=== PATIENT | female | born 1950 | race Caucasian/White ===

== ENCOUNTER 2022-04-05 00:55 | Day surgery (SDC) | payer MEDICARE, SELFPAY ==
[2022-03-22 10:34] VITALS: BMI 23.9
[2022-04-05 09:37] VITALS: BP 129/71; PULSE 72; RESP 15; TEMP 37.2; O2SAT 100
[2022-04-05] MEDS: LACTATED RINGERS 1,000 ML 150 ML IV CONT (09:47)
--- NOTE | 2022-04-05 10:12 | P.PNAN_ITS ---
Anes - Initial Pre Proc Eval Procedure: Operation Date: 04/05/22 10:30 Proposed Procedures p Screening Colonoscopy - Aleks Calvillo MD Date/Time: 04/05/22 10:12 Surgeon: Aleks Calvillo MD Pre Op Diagnosis: neoplasm screening Patient Data Age: 71 Gender: F Height: 1.63 m Weight: 62.3 kg Last Vital Signs Temp 99.0 F 04/05/22 09:37 Pulse 72 04/05/22 09:37 Resp 15 04/05/22 09:37 BP 129/71 04/05/22 09:37 Pulse Ox 100 04/05/22 09:37 O2 Del Method Room Air 04/05/22 09:37 Allergies Allergy/AdvReac Type Severity Reaction Status Date / Time codeine AdvReac Intermediate Upset Verified 04/05/22 09:36 stomach Home Medications Medication Instructions Recorded Confirmed Type blood pressure monitor #1 ea 04/06/20 04/05/22 Rx triamterene 37.5 0.5 tablet PO QAM #90 tabs 08/17/20 04/05/22 Rx mg-hydrochlorothiazide 25 mg tablet losartan 50 mg tablet 50 mg PO DAILY 03/22/22 04/05/22 History simvastatin 10 mg tablet 10 mg PO DAILY 03/22/22 04/05/22 History Patient hx anesthesia problems: post op nausea/vomiting Family hx anesthesia problems: none Results Review: All pre-operative results and documents have been reviewed as part of the pre- operative evaluation. [facility] Past Medical History Medical History (Updated 04/06/20 @ 14:11 by Lisa Concepcion NP) Essential (primary) hypertension Mixed hyperlipidemia Normal colonoscopy (~08/2017) Osteopenia of femoral neck Left - Dexa 08/2017 Recurrent UTI Surgical History Surgical History History of lumpectomy (~2004) Family History Family History Father Carcinoma of colon Patient's father is , Onset Age: 65 Mother Family history of lung cancer Social History Social History Smoking status: Never smoker Alcohol intake: current Alcohol use details: 2 per month Substance use: never Substance use type: does not use Living arrangements: with family Spiritual care concerns: No Anes - Eval Final PreProcedure Day of Procedure 04/05/22 10:12 Patient weight: normal Heart: regular rate and rhythm Lungs: clear to auscultation Airway: Mallampati scale class II Neurological: alert and oriented Last oral intake: >/= 8 hours ASA classification: III Emergent: no Anesthetic plan: proceed Anesthesia type and monitoring: general GIVS and standard monitoring Results Review: All pre-operative results and documents have been reviewed as part of the pre- operative evaluation. Informed Consent: The patient's anesthetic plan and its attendant risks and benefits were discussed with the patient/family/POA. Questions were solicited and answers provided to the satisfaction of the patient/family/POA.
--- NOTE | 2022-04-05 10:13 | PM.HPGS ---
History of Present Illness History of Present Illness Consent: Risks, benefits, and alternatives have been discussed and questions answered. Patient agrees to proceed with procedure. Chief complaint: neoplasm screening Narrative: Madonna Acosta is a 71 year old female He was referred for colon cancer screening. Her father had colon cancer. Review of Systems Review of Systems: All systems reviewed & are unremarkable except as noted in HPI and below PMFSH Past Medical History Medical History (Updated 04/05/22 @ 10:13 by Aleks Calvillo MD) Essential (primary) hypertension Mixed hyperlipidemia Normal colonoscopy (~08/2017) Osteopenia of femoral neck Left - Dexa 08/2017 Recurrent UTI Surgical History Surgical History History of lumpectomy (~2004) Family History Family History Father Carcinoma of colon Patient's father is , Onset Age: 65 Mother Family history of lung cancer Social History Social History Smoking status: Never smoker Alcohol intake: current Alcohol use details: 2 per month Substance use: never Substance use type: does not use Living arrangements: with family Spiritual care concerns: No Meds Home Medications and Allergies Home Medications Medication Instructions Recorded Confirmed Type blood pressure monitor #1 ea 04/06/20 04/05/22 Rx triamterene 37.5 0.5 tablet PO QAM #90 tabs 08/17/20 04/05/22 Rx mg-hydrochlorothiazide 25 mg tablet losartan 50 mg tablet 50 mg PO DAILY 03/22/22 04/05/22 History simvastatin 10 mg tablet 10 mg PO DAILY 03/22/22 04/05/22 History Allergies Allergy/AdvReac Type Severity Reaction Status Date / Time codeine AdvReac Intermediate Upset Verified 04/05/22 09:36 stomach Vital Signs Vital Signs - 24 hr 04/05/22 09:37 Temperature 37.2 C Pulse Rate 72 Respiratory Rate 15 Blood Pressure 129/71 Pulse Oximetry 100 Oxygen Delivery Room Air Exam Resp: Auscultation: clear to auscultation bilaterally Cardio: Rate: regular rate Rhythm: regular rhythm GI: GI Palp: Yes Soft to palpation and No Tenderness to palpation present (GI) Assessment and Plan Assessment and plan (1) Colon cancer screening: Code(s): Z12.11 - Encounter for screening for malignant neoplasm of colon Status: Acute Plan Colonoscopy with possible biopsy or polypectomy or cautery or injection of substances.
[2022-04-05 10:42] VITALS: BP 102/56; PULSE 69; RESP 19; O2SAT 99
[2022-04-05 10:52] VITALS: BP 96/54; PULSE 64; RESP 20; O2SAT 100
[2022-04-05 11:02] VITALS: BP 110/60; PULSE 53; RESP 20; O2SAT 100
== END 2022-04-05 11:20 | disposition home or self-care (01) ==
PROVIDERS: PCP Physician Assistant; Visit Provider Internal Medicine Gastroenterology
PROC: 0DJD8ZZ Inspection of Lower Intestinal Tract, Via Natural or Artificial Opening Endoscopic (ICD-10-PCS; CPT 45378; principal; 2022-04-05 10:30)
DX: Z12.11 Encounter for screening for malignant neoplasm of colon (principal); K64.8 Other hemorrhoids; I10 Essential (primary) hypertension; E78.2 Mixed hyperlipidemia; M85.852 Other specified disorders of bone density and structure, left thigh; Z80.0 Family history of malignant neoplasm of digestive organs
CPT/HCPCS: G0105; J2704; J7120

== ENCOUNTER 2023-11-11 16:09 | Emergency (ER) | payer MEDICARE, SELFPAY ==
[2023-11-11 16:44] VITALS: BP 150/63; PULSE 62; RESP 18; TEMP 36.6; O2SAT 98
--- NOTE | 2023-11-11 16:45 | ED.SKABFB ---
HPI - Skin/Abscess/Foreign Bdy General Chief complaint: Skin/Abscess/Foreign Body Stated complaint: face itching Time Seen by Provider: 11/11/23 16:15 Source: patient Mode of arrival: ambulatory Limitations: no limitations History of Present Illness HPI narrative: Madonna is a 73-year-old female patient presenting to the clinic today with complaints of a rash on her face x5 days. She has tried [id number] Benadryl cream and lotion without success. States she put on a new lotion a few days prior to the rash developing. Otherwise no new changes in soaps, shampoos, detergents, lotions, or makeup Related Data Home Medications Medication Instructions Recorded Confirmed losartan 50 mg tablet 50 mg PO DAILY 03/22/22 11/11/23 simvastatin 10 mg tablet 10 mg PO DAILY 03/22/22 11/11/23 Allergies Allergy/AdvReac Type Severity Reaction Status Date / Time codeine AdvReac Intermediate Upset Verified 11/11/23 16:41 stomach Review of Systems Review of Systems: Pertinent positives per HPI. Patient denies any fever, chills, rash, headache, visual changes, dizziness, cough, runny nose, sore throat, shortness of breath, chest pain, palpitations, nausea, vomiting, diarrhea, constipation, abdominal pain, or any urinary issues. [facility] Past Medical History Medical History Essential (primary) hypertension Mixed hyperlipidemia Normal colonoscopy (~08/2017) Osteopenia of femoral neck Left - Dexa 08/2017 Recurrent UTI Surgical History Surgical History History of lumpectomy (~2004) Family History Family History Father Carcinoma of colon Patient's father is , Onset Age: 65 Mother Family history of lung cancer Social History Social History Smoking status: Never smoker Alcohol intake: current Alcohol use details: 2 per month Substance use: never Substance use type: does not use Living arrangements: with family Spiritual care concerns: No Comments At the time of my signature, I reviewed and agree with the nursing past medical, surgical, social, and family history. There is no relevant family history pertinent to the patient complaint. Exam Narrative: General: Well-developed, well nourished, in no apparent distress Head: Normocephalic, atraumatic. Cardio: Regular rate and rhythm, s1 and s2 normal, no murmur appreciated. Resp: Clear to auscultation bilaterally, no rhonchi, rales, wheezing or rubs. Integumentary: [place], warm, and dry, intact without lesion, red raised scaly rash to bilateral cheeks, chin, and around mouth. Course Course Emergency Course: Portions of this record may have been created with voice recognition software. Level of Care: Express Care Visit Vital Signs Vital signs: Vital signs reviewed MDM - Skin/Abscess/Foreign Bdy MDM Narrative Medical decision making narrative: At the time of visit patient is resting comfortably on the exam table. Patient appears to be nontoxic. I suspect patient has facial dermatitis. Prescription for triamcinolone lotion and prednisone was sent to the pharmacy. Supportive measures were discussed with the patient and they voiced understanding discharge instructions and agrees to treatment plan. Return precautions reviewed Differential Diagnosis Differential diagnosis: Likely abscess of skin or subcutaneous tissue, urticaria, cellulitis, eczema, insect bites, impetigo and contact dermatitis Discharge Plan Discharge Clinical Impression: Facial dermatitis Patient Disposition: Home, Self-Care Condition: Stable Instructions: Antibiotic Form, Dermatitis (ED) Additional Instructions: Apply triamcinolone cream as directed Take prednisone as directed Avoid hot showers Moistur
== END 2023-11-11 16:55 | disposition home or self-care (01) ==
PROVIDERS: Emergency Provider Nurse Practitioner Family; PCP Physician Assistant
DX: L30.9 Dermatitis, unspecified (principal); I10 Essential (primary) hypertension; E78.5 Hyperlipidemia, unspecified
CPT/HCPCS: 99213; G0463

== ENCOUNTER 2025-02-18 10:25 | Outpatient (CLI) | payer MEDICARE, SELFPAY ==
--- NOTE | ~2025-02-18 | MM_ITS ---
EXAMINATION: MM screening rebecca BI w brad HISTORY: Screening. History of radiation therapy for left breast cancer. TECHNIQUE: Craniocaudal and mediolateral oblique 3-D tomosynthesis images were obtained and synthetic 2-D images were generated. CAD analysis was submitted and interpreted. COMPARISON: No prior mammogram is available for comparison at this institution. BREAST PARENCHYMAL COMPOSITION: Dense: The breasts are heterogeneously dense, which may obscure small masses FINDINGS: There are asymmetries scattered throughout the right breast. There is distortion of the lef t breast in the lower outer quadrant, posterior third with increased density of the left breast dontae red to the right. There are benign right breast calcifications. IMPRESSION: 1. Right breast asymmetries. No architectural distortion left breast. 2. Comparison to prior outside mammograms recommended. BI-RADS Category 0: Incomplete: Needs additional imaging evaluation. Reviewed, dictated and finalized at location A.
== END 2025-02-18 10:26 | disposition home or self-care (01) ==
LOC: MICIMG 10:26
PROVIDERS: PCP Physician Assistant; Visit Provider Physician Assistant
DX: Z12.31 Encounter for screening mammogram for malignant neoplasm of breast (principal); R92.8 Other abnormal and inconclusive findings on diagnostic imaging of breast
CPT/HCPCS: 77063; 77067

== ENCOUNTER 2025-03-19 09:13 | Outpatient (CLI) | payer MEDICARE, SELFPAY ==
--- NOTE | ~2025-03-19 | MMUS_ITS ---
EXAMINATION: MM diagnostic rebecca RT w brad, US breast RT complete HISTORY: Follow-up right breast asymmetries TECHNIQUE: Additional 3-D tomosynthesis images of the right breast were performed and synthetic 2-D i mages were generated. CAD analysis was submitted and interpreted. High resolution complete right gorge st ultrasound was performed. COMPARISON: Comparison to multiple prior studies sequentially, with oldest reviewed study dated 09/12. BREAST PARENCHYMAL COMPOSITION: Dense: The breasts are heterogeneously dense, which may obscure small masses FINDINGS: MAMMOGRAPHIC FINDINGS: There are persistent asymmetries in the subareolar location of the right breast, although no discrete mass is identified. There are no suspicious calcifications or architectural distortion. ULTRASOUND: Complete US of all 4 quadrants of the right breast/s and retroareolar region was reviewed. At 4:00, 3 cm from the nipple there is a 3 mm cyst. At 9:00, 5 cm from the nipple, there is a cluster of microc ysts. No suspicious sonographic abnormalities to suggest malignancy. IMPRESSION: 1. No evidence for malignancy in the right breast. Benign findings. 2. Routine yearly screening mammogram and regular clinical breast examination are recommended. BI-RADS Category 2: Benign finding(s). Reviewed, dictated and finalized at location A. IMPRESSION: 1. No evidence for malignancy in the right breast. Benign findings. 2. Routine yearly screening mammogram and regular clinical breast examination a re recommended. BI-RADS Category 2: Benign finding(s).
== END 2025-03-19 09:14 | disposition home or self-care (01) ==
LOC: MICIMG 09:13
PROVIDERS: PCP Physician Assistant; Visit Provider Physician Assistant
DX: R92.8 Other abnormal and inconclusive findings on diagnostic imaging of breast (principal); N60.01 Solitary cyst of right breast; N60.11 Diffuse cystic mastopathy of right breast
CPT/HCPCS: 76641; 77061; 77065; G0279

== ENCOUNTER 2025-09-29 12:28 | Outpatient (CLI) | payer MEDICARE, SELFPAY ==
--- NOTE | ~2025-09-29 | DEXA_ITS ---
Bone Density Report Name: DESI GELLER Age: 75 Sex: Female Ethnicity: White Date of : 1950 Indication: postmenopausal; screening for osteoporosis; cancer; Referring Provider: CORINNA, KAREN Study: Bone densitometry was performed. Exam Date: September 29, 2025 Accession number: [id number] Bone Density: Region BMD T-score Z-score Classification AP Spine(L1-L4) 1.006 -0.4 1.9 Normal Femoral Neck (Left) 0.678 -1.5 0.4 Osteopenia Total Hip (Left) 0.750 -1.6 0.1 Osteopenia Femoral Neck (Right) 0.705 -1.3 0.7 Osteopenia Total Hip (Right) 0.833 -0.9 0.8 Normal Total Hip Mean 0.792 -1.3 0.5 Osteopenia World Health Organization criteria for BMD impression classify patients as: Normal (T-score at or above -1.0), Osteopenia (T-score between -1.0 and -2.5), or Osteoporosis (T-score at or below -2.5). 10-year Fracture Risk(1): Major Osteoporotic Fracture 11% Hip Fracture 1.9% Reported Risk Factors: [place] (), Neck BMD=0.678, BMI=25.8 (1) FRAX(R) Version 3.08. Fracture probability calculated for an untreated patient. Fracture probability may be lower if the patient has received treatment. Previous Exams: -- Region Exam Age BMD T-score BMD Change BMD Change Date g/cm2 vs Baseline vs Previous -- AP Spine (L1-L4) 09/29/2025 75 1.006 -0.4 -2.6%* -2.6%* 09/06/2017 67 1.033 -0.1 Total Hip(Left) 09/29/2025 75 0.750 -1.6 -8.3%* -8.3%* 09/06/2017 67 0.818 -1.0 Total Hip(Right) 09/29/2025 75 0.833 -0.9 -7.5%* -7.5%* 09/06/2017 67 0.900 -0.3 -- *Denotes significance at 95% confidence level, LSC for AP Spine = 0.022 g/cm2, LSC for Total Hip = 0.027 g/cm2 Clinical Information Provided by Patient: Has used the following medications: Boniva (i.e. ibandronate), Vitamin D, Calcium Has the following medical conditions: Cancer, breast cancer Patient maximum height was 64 Menopause Age: 55 Drinks caffeinated beverages Onset of menses at age 14 Number of children 3 Impression: The patient has low bone mass, based on the Left Total Hip T-score. The patient has an estimated ten-year risk of hip fracture of 1.9% and an estimated ten-year risk of major fracture of 11%, based on the WHO FRAX algorithm. The BMD for the AP Spine (L1-L4) decreased, changing by -2.6% since the last DXA exam. The BMD for the Total Hip(Left) decreased, changing by -8.3% since the last DXA exam. The BMD for the Total Hip(Right) decreased, changing by -7.5% since the last DXA exam. Discussion: BONE DENSITY IS LOW AT ONE OR MORE SKELETAL SITES. This patient's lowest T-score is low at one or more skeletal sites. It meets the World Health Organization's (WHO) criteria for ?low bone mass? (T-score between -1.0 and -2.5). The patient's 10-year risk of fracture as calculated by FRAX is less than the threshold where pharmacological therapy is recommended by the National Osteoporosis Foundation (NOF). However, all treatment decisions require clinical judgment and consideration of individual patient factors, including patient preferences, comorbidities, previous drug use, risk factors not captured in the FRAX model (e.g., frailty, falls, vitamin D deficiency, increased bone turnover, interval significant decline in bone density) and possible under or overestimation of fracture risk by FRAX. The patient should follow a healthful lifestyle (good nutrition with adequate calcium and vitamin D, and appropriate weight-bearing exercise). Follow-Up: Consider repeating this study in 2 years to reassess this patient's status, or sooner if there is some new clinical indication. Reported by: CHAN on 09/29/2025 12:52:00 PM. Reviewed, dictated and finalized at location A.
== END 2025-09-29 12:29 | disposition home or self-care (01) ==
PROVIDERS: PCP Physician Assistant; Visit Provider Physician Assistant
DX: M85.89 Other specified disorders of bone density and structure, multiple sites (principal)
CPT/HCPCS: 77080